=== PATIENT | female | born 1990 | race Caucasian/White ===

== ENCOUNTER 2025-02-05 16:45 | Emergency (ER) | payer OTHER, SELFPAY ==
[2025-02-05 17:21] VITALS: BP 111/80; PULSE 110; RESP 16; TEMP 36.8; O2SAT 97
--- NOTE | 2025-02-05 17:41 | PC.NURSE ---
ERP at bedside with US machine.
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
--- OUTSIDE RECORDS SUMMARY | 2025-02-05 18:20 | XMS_ITS | Clinical Summary ---
Author Organization [facility] Padmini Amezcua Address [address] [place] [address] Care Team Providers Care Operating Room Orderly Name Role Phone Taylor Domínguez DO Primary Care Provider [phone] Allergies No known active allergies Medications Zinc Gluconate 30 mg Tablet Take by mouth. Active MAGNESIUM CITRATE ORAL Take by mouth. Active folic acid-vit B6-vit B12 (Folbee) 2.5-25-1 mg TabletIndication s:MTHFR deficiency Take 1 Tablet by mouth daily. 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, antepartum 10/18/2022 is hemochromatosis carrier 10/18/2022 Overview (10/26/2022): has hemochromatosis, patient is also a carrier Anxiety during in second trimester, an tepartum 10/18/2022 Vitamin D deficiency 09/17/2018 Seasonal allergic rhinitis due to pollen 017 Osteopenia of both thighs 10/26/2014 Pap smear of cervix with ASCUS, cannot exclude H GSIL 05/25/2012 Cervical high risk human pap illomavirus (HPV) DNA test positive 05/25/2012 HANY (generalized anxiety disorder) 09/11/2011 Acne, mild 09/11/2011 Estimated Date of Delivery Comme nts Yes 07/07/2025 Date entered serina or to episode creation Resolved Problems Problem Noted Date Diagnosed Date Resolved Date Chlamydia 12/09/2012 04/24/2013 Encounters Date Type Department Care Team Description 01/26/2025 9:20 AM CDT visit [facility] ASSESSMENT RN [address] [facility] [address] [place] [address] Faith Lau NP Supervision of normal first in second trimester (Primary Dx); Need for influenza vaccination 01/26/2025 External Device Data STL ABSTRACTION Provider, Abstract 01/05/2025 External Device Data STL ABSTRACTION Provider, Abstract 01/04/2025 Refill [facility] ASSESSMENT RN [place] [address] [address] [place] [address] Kimberly Cunningham MD 12/22/2024 9:40 AM CDT visit [facility] ASSESSMENT RN [address] [facility] [address] [place] [address] Faith Lau NP Normal , antepartum (Primary Dx); Encounter for supervision of normal first in first trimester; Obesity in , antepartum 12/22/2024 External Device Data STL ABSTRACTION Provider, Abstract 12/09/2024 External Device Data STL ABSTRACTION Provider, Abstract 12/01/2024 2:40 PM CDT Office Visit [facility] ASSESSMENT RN [address] [place] [address] Kimberly Cunningham MD Positive test (Primary Dx) 12/01/2024 1:30 PM CDT Ancillary Procedure [facility] ASSESSMENT RN [address] [facility] [address] [place] [address] Kimberly Cunningham MD Encounter for confirmation of test result with physical examination; Maternal obesity syndrome in first trimester 11/25/2024 External Device Data STL ABSTRACTION Provider, Abstract 11/05/2024 Telephone [facility] Clinical Support [address] [address] [place] [phone] Kimberly Cunningham MD RN Call from Last 3 Months Immunizations Immunization Administration Dates Next Due (ABRYSVO)(60 YR UP/GA 32-36 WKS) RSV, BIVALENT, PROTEIN SUBUNIT RSVPREF, DILUENT RECONSTITUTED, 0.5 ML, PF 01/20/2024 (ADACEL/BOOSTRIX)(10 YR UP) TDAP VACCINE, 0.5ML, IM 12/17/2023,11/09/2022 (HAVRIX/VAQTA)(19 YRS UP) HE PATITIS A VACCINE ADULT DOSAGE 1 ML IMM 01/28/2012,08/31/2011 (M-M-R II/PRIORIX)(12 MO UP) MEASLES, MUMPS AND RUBELLA VIRUS VACCINE, 0.5 ML IM/SUBCUT 01/28/2023 (SPIKEVAX) (12 YRS UP PRIMAR Y SERIES) COVID-19 VACCINE - MRNA-1273(PF) 100 MCG/0.5 ML IM SUSP 02/24/2021,08/04/2020,07/07/2020 INFLUENZA VACCINE QUADRIVALE NT 6 MOS UP PF IM 01/04/2023 INFLUENZA VACCINE TRIVALENT SPLIT VIRUS, (6 MOS UP), 0.5ML (PF), IM 01/26/2025,01/20/2024 Influenza Seasonal Unspecifi ed Formulation IM 03/06/2021,02/19/2020,01/20/2017 Skin Test TB 12/15/2014, 5,10/12/2013,2013,08/28/2011 Family History Medical History Relation Name Comments No Known Problems Daughter Cancer Father Prostate cancer Prostate can cer High Cholesterol Father Prostate cancer Thyroid Disease Maternal Grandmother Thyroid disease Thyroid Disease Mother Hypothyroid disease Cancer Paternal Grandfather Prostate cancer High Cholesterol Paternal Grandfather Prostate cancer Lung Cancer Paternal Grandfather Prostate cancer High Cholesterol Paternal Grandmother Respiratory Disease Paternal Grandmother No Known Problems Son Relation Name Status Comments Brother 1 Alive Brother 2 Alive Daughter Alive Father Prostate cancer Alive Maternal Grandfather Alive Maternal Grandmother Thyroid disease Alive Mother Hypothyroid disease Alive Paternal Grandfather Prostate cancer Paternal Grandmother Alive Sister Alive Son Alive Social History Tobacco Use Types Packs/Day Years Used Date Smoking Tobacco: Never Smokeless Tobacco: Never Tobacco Cessation:Counseling Given: Not Answered Alcohol Use Standard Drinks/Week Comments Not Currently 0 (1 standard drink = 0.6 oz pure alcohol) Casual drinker on the weekends Feeling Safe Answer Date Recorded Within the last year, have y ou been afraid of your partner or ex-partner? No 09/17/2018 Within the last year, have y ou been humiliated or emotionally abused in other ways by your partner or ex-partner? No Within the last year, have y ou been kicked, hit, slapped, or otherwise physically hurt by your partner or ex-partner? No 09/17/2018 Within the last year, have y ou been raped or forced to have any kind of sexual activity by your partner or ex-partner? No 09/17/2018 Social Connections Answer Date Recorded In a typical week, how many times do you talk on the phone with family, friends, or neighbors? More than three times a week 09/17/2018 How often do you get togethe r with friends or relatives? More than three times a week 09/17/2018 How often do you attend chur ch or amish services? 1 to 4 times per year 09/17/2018 Do you belong to any clubs o r organizations such as moravian groups, unions, fraternal or athletic groups, or school groups? No 09/17/2018 How often do you attend meet ings of the clubs or organizations you belong to? Never 09/17/2018 Are you , , di vorced, , never , or living with a partner? Never 09/17/2018 Financial Resource Strain Answer Date R ecorded How hard is it for you to pa y for the very basics like food, housing, medical care, and heating? Not hard at all 09/17/2018 Food Insecurity Answer Date Recorded Within the past 12 months, y ou worried that your food would run out before you got the money to buy more. Never true 09/18/19 19 Within the past 12 months, t he food you bought just didn't last and you didn't have money to get more. Never true 09/17/2018 Transportation Needs Answer Date Record ed In the past 12 months, has l ack of transportation kept you from medical appointments or from getting medications? No 08/21 In the past 12 months, has l ack of transportation kept you from meetings, work, or from getting things needed for daily living? No 09/17/2018 Feeling Safe Answer Date Recorded Are you in a relationship wi th someone who hurts you emotionally and/or physically? Patient unable to answer 02/25/2024 Estimated Date of Delivery Comme nts Yes 07/07/2025 Date entered serina or to episode creation Sex and Gender Information Value Date Recorded Sex Assigned at Female 12/31/2023 3:05 PM CDT Legal Sex Female 3:06 AM CLAIM INVESTIGATOR Gender Identity Female 12/31/2023 3:05 PM CDT Sexual Orientation Not on file Occupation Industry Job Start Date Job End Date Not on file Not on file Not on file Not on file Last Filed Vital Signs Vital Sign Reading Time Taken Comments Blood Pressure 122/80 01/26/2025 9:04 AM CDT Pulse 75 04/13/2024 9:34 AM CLAIM INVESTIGATOR Temperature 36.3 C (97.3 F) 04/13/2024 9:34 AM CLAIM INVESTIGATOR Respiratory Rate 16 02/27/2024 7:02 AM CLAIM INVESTIGATOR Oxygen Saturation 97% 04/13/2024 9:34 AM CLAIM INVESTIGATOR Inhaled Oxygen Concentration - - Weight 87.1 kg (192 lb) 01/26/2025 9:04 AM CDT Height 162.6 cm (5' 4) 01/26/2025 9:04 AM CDT Body Mass Index 32.96 01/26/2025 9:04 AM CDT Plan of Treatment Upcoming Encounters Date Type Department Care Team (Late st Contact Info) Description 02/16/2025 1:00 PM CDT Ancillary Procedure [facility] ASSESSMENT RN [address] [address] [address] [place] [address] 02/16/2025 2:00 PM CDT visit [facility] ASSESSMENT RN [place] [address] [address] [place] [address] Kimberly Cunningham MD [facility] [address] [place] [address] 03/31/2025 1:30 PM CLAIM INVESTIGATOR visit [facility] ASSESSMENT RN [place] [address] [place] [address] En Rapp MD [facility] [address] [place] [address] 04/13/2025 1:10 PM CLAIM INVESTIGATOR visit [facility] ASSESSMENT RN [place] [address] [place] [address] Kimberly Cunningham MD [facility] [address] [place] [address] 04/19/2025 9:40 AM CLAIM INVESTIGATOR Office Visit [facility] [address] [place] [address] Taylor Domí[place] [address] [place] [address] 05/11/2025 1:40 PM CLAIM INVESTIGATOR visit [facility] ASSESSMENT RN [place] [address] [place] [address] Kimberly Cunningham MD [facility] [address] [place] [address] 05/25/2025 1:30 PM CLAIM INVESTIGATOR visit [facility] ASSESSMENT RN [address] [place] [address] [place] [address] Kimberly Cunningham MD [facility] [address] [place] [address] 06/08/2025 1:10 PM CLAIM INVESTIGATOR visit [facility] ASSESSMENT RN [place] [address] [place] [address] Kimberly Cunningham MD [facility] [address] [place] [address] 06/15/2025 1:10 PM CLAIM INVESTIGATOR visit [facility] ASSESSMENT RN [address] [place] [address] Kimberly Cunningham MD [facility] [address] [place] [address] 06/22/2025 1:10 PM CLAIM INVESTIGATOR visit [facility] ASSESSMENT RN [address] [place] [address] Kimberly Cunningham MD [facility] [address] [place] [address] 06/29/2025 1:20 PM CDT visit [facility] ASSESSMENT RN [address] [place] [address] Kimberly Cunningham MD [facility] [address] [place] [address] 07/06/2025 1:20 PM CDT visit [facility] ASSESSMENT RN [address] [place] [address] Kimberly Cunningham MD [facility] [address] [place] [address] Health Maintenance Due Date Last Done Comments HEPATITIS B VACCINES (1 of 3 - 19+ 3-dose series) 2010 HPV VACCINES (1 - 3-dose SCD M series) 2018 COVID-19 Vaccine (4 - 2024-2 6 season) 2024 02/24/2021, 08/04/2020, 07/07/2020 PAP SMEAR 05/05/2027 05/05/2024, 12/2023, 02/28/2021, Additional history exists CERVICAL CANCER SCREENING 05/05/2029 HPV/Cotest (21-29) 05/05/2029 05/05/2024, 0 04/30/2023, 11/26/2019, Additional history exists HPV/Cotest (30-65) 05/05/2029 05/05/2024, 0 04/30/2023, 11/26/2019, Additional history exists DTAP/TDAP/TD VACCINES (3 - T d or Tdap) 12/16/2033 12/17/2023, 11/09/2022 RSV VACCINE (60+ or ) Completed 01/20/2024 Preventative Visit- Commercial Completed 0 05/04/2024, 04/13/2024, 04/30/2023, Additional history exists INFLUENZA VACCINE Completed 01/26/2025, , 01/04/2023, Additional history exists Medical Devices Explanted Type Area Hvac Controls Technician Device Identifier Shelf Expiration Date Model / Serial / Lot Stent Polaris Ultra [id number] - [id number] Implanted:Qty: 1 on 04/27/2015 by Jl Koehler MD at [facility] Explanted:Qty: 1 on 05/16/2015 by Mel Eubanks MD at [facility] Stent Right: Ureter [employer] UROLOGY/VIDEOGAME TESTER 02/06/2018 [id number] / / [id number] Procedures Procedure Name Priority Date/Time Associated Diagnosis Comments NON-INVASIVE TESTING PANEL (NIPT) Routine 12/28/2024 Encounter for supervision of normal first in first trimester MEDICATION COMPLIANCE DRUG SCREEN Routine 12/22/2024 12:00 AM CDT Normal , antepartum URINE CULTURE, W/GBS SUSCEPTIBILITIES Routine 12/22/2024 12:00 AM CDT Normal , antepartum GC/CHLAMYDIA, UROGENITAL Routine 12/01/2024 3:06 PM CDT Positive test OBSTETRIC PANEL Routine 12/01/2024 2:51 PM CDT Positive test US OB LESS THAN 14 WKS SINGLE GEST Routine 12/01/2024 1:43 PM CDT Encounter for confirmation of test result with physical examination Maternal obesity syndrome in first trimester PROGESTERONE Routine 11/09/2024 2:08 PM CDT Positive urine test HCG QUANTITATIVE, BLOOD Routine 11/10/19 2:08 PM CDT Positive urine test CERV/VAG CYTO SCREEN PAP W/HPV Routine 05/05/2024 10:32 AM CLAIM INVESTIGATOR Well woman exam with routine gynecological exam Screen for STD (sexually transmitted disease) from Last 3 Months or Most Recently Relevant to Health Maintenance Results * NON-INVASIVE TESTING PANEL (NIPT) (12/28/2024) REPORT SUMMARY LOW RISK [facility] Comment:LOW RISK REPORT NOTE See Notes [facility] TRISOMY 13 AGE-BASED RISK TEXT (0.04%) [facility]E TRISOMY 13 RISK SCORE TEXT <1/10,000 (<0.01%) [facility]E TRISOMY 13 RESULT TEXT Low Risk [facility] TRISOMY 18 AGE-BASED RISK TEXT 725 (0.14%) [facility]E TRISOMY 18 RISK SCORE TEXT <1/10,000 (<0.01%) [facility] TRISOMY 18 RESULT TEXT Low Risk [facility] TRISOMY 21 AGE-BASED RISK TEXT 312 (0.32%) [facility]E TRISOMY 21 RISK SCORE TEXT <1/10,000 (<0.01%) [facility] TRISOMY 21 RESULT TEXT Low Risk [facility] MONOSOMY X AGE-BASED RISK TEXT 255 (0.39%) [facility]E MONOSOMY X RISK SCORE TEXT <1/10,000 (<0.01%) [facility] MONOSOMY X RESULT TEXT Low Risk [facility] 22Q11.2 DELETION SYNDROME POPULATION-BASED RISK TEXT [facility]E 22Q11.2 DELETION SYNDROME RISK SCORE TEXT DARCIE 22Q11.2 DELETION SYNDROME RESULT TEXT Low Risk D[facility] TRIPLOIDY RESULT TEXT Low Risk [facility] GENDER OF FETUS Female D[facility]E FRACTION 5.9% [facility] RH (D) SUMMARY status not assessed [facility] Comment: The patient is RHD positive by genotype and therefore, the status is not assessed. Reasons for this result type include Rh positive blood type or Rh negative blood type with Weak D, Partial D (e.g. DVI), or other rare RHD genotype. *Clinical management should be based upon the patient's Rh blood type result by routine serology. *A repeat specimen is not indicated. FOOTNOTES See Notes [facility] Comment: Testing Methodology DNA isolated from maternal blood, which contains placental DNA, is amplified at specific loci using a targeted PCR assay and is sequenced using a high- throughput sequencer. fraction is determined using a proprietary algorithm incorporating data from single nucleotide polymorphism-based (SNP-based) next-generation sequencing [Alondra Lyons et al. Obstet Gynecol. 2014 Nov;124(2 Pt 1):210-8]. If there is sufficient fraction, sequencing data is analyzed using a proprietary SNP- based algorithm to determine the copy number for chromosomes 13, 18, 21, X and Y. If ordered, specific microdeletions will be evaluated using similar methodology [Manuel HALL et al. Am J Obstet Gynecol. 2015 Jun;212(3):332.e1-9]. If the fraction is insufficient, an additional algorithm to determine whether there is an increased risk for triploidy, trisomy 18, and trisomy 13 may be utilized, known as fraction based risk assessment (FFBR) [Caridad et al. Ultrasound Obstet Gynecol 2019; 53:73-79]. If ordered on a vanishing twin , a proprietary analysis will be performed to differentiate between the viable/living fetus and the vanished fetus to allow for risk assessment of copy number of chromosomes 13,18, 21, X, Y, and specific microdeletions in the viable/living twin using the above described SNP- based algorithm. If ordered, and patient is RHD negative by genotype, RHD status will be evaluated using a proprietary algorithm if fraction is sufficient [Madonna Eric et al. Obstet Gynecol 202;145:1?7]. However, some samples will not produce a result due to failure to meet the necessary quality thresholds. This test has been validated on women with a manzano, twin, vanishing twin, or egg donor of at least nine weeks gestation. A result will not be available for higher order multiples and multiple gestation pregnancies with an egg donor or surrogate, or bone marrow transplant recipients. Complete test panel is not available for twin gestations and pregnancies achieved with an egg donor or surrogate. For twin pregnancies with a fraction value below the threshold for analysis, a sum of the fractions for both twins will be reported. As this assay is a screening test and not diagnostic, false positives and false negatives can occur. High risk test results need diagnostic confirmation by alternative testing methods. Low risk results do not fully exclude the diagnosis of any of the syndromes nor do they exclude the possibility of other chromosomal abnormalities or defects, which are not a part of this test. Potential sources of inaccurate results include, but are not limited to, mosaicism, low fraction, limitations of current diagnostic techniques, or misidentification of samples. This test will not identify all deletions associated with each microdeletion syndrome. This test has been validated for deletions ?0.5 Mb within the 22q11.2 A-D region. This test has been validated on full region deletions only for 1p36 deletion syndrome, Cri-du-chat syndrome, Prader Willi syndrome and Angelman syndrome and may be unable to detect smaller deletions. Microdeletion risk score may be dependent upon fraction, as deletions on the maternally inherited copy are difficult to identify at lower fractions. Test results should always be interpreted by a clinician in the context of clinical and familial data with the availability of genetic counseling when appropriate. Disclaimers The extraction, library preparation, and sequencing of this test were performed by [facility] [address] [place] [address] [address], [place] [address] (CLIA ID [id number]). The data analysis and reporting of this test were performed by [facility] [address], [place] [address] (CLIA ID [id number]). The performance characteristics of this test were developed by [facility].(CLIA ID [id number]). This test has not been cleared or approved by the U.S. Food and Drug Administration (FDA). These laboratories are regulated under CLIA as qualified to perform high-complexity testing. 2024 [facility]. All Rights Reserved. Please refer to the attached PDF report Reviewed By: Erica Coreas M.D., Ph.D., [facility], Senior Senior Functional Analyst [facility] Bathing Suit Maker: Esthela Palacio, Ph.D., [facility] IF THE ORDERING PROVIDER HAS QUESTIONS OR WISHES TO DISCUSS THE RESULTS, PLEASE CONTACT US AT [phone], option 2. Ask for the NIPT genetic counselor process control tech. Blood Faith Lau NP CHEMISTRY ORDERABLES Final Re sult [facility] [address] [place] [address] * URINE CULTURE, W/GBS SUSCEPTIBILITIES (12/22/2024 12:00 AM CDT) CULTURE, URINE, , W/GBS SUSCEPTIBILITIES SEE NOTE [facility] Comment: CULTURE, URINE, , W/GBS SUSCEPTIBILITIES Micro Number: [id number] Test Status: Final Specimen Source: Urine, clean catch Specimen Quality: Adequate Result: No Growth Test Performed at: [place] [address] [place] [address] Shashi Amin Urine URINE SPECIMEN OBTAINED BY CLEAN CATCH PROCEDURE / Unknown 12/22/2024 12/23/2024 12:33 AM CDT Faith Lau NP MICROBIOLOGY - GENERAL ORDERA BLES Final Result [facility] [phone] [place] [address] [place] [address] * MEDICATION COMPLIANCE DRUG SCREEN (12/22/2024 12:00 AM CDT) Summary [facility] Comment:Summary not applicab le BUPRENORPHINE (URINE) NEGATIVE <5 ng/mL [facility] Fentanyl NEGATIVE <0.5 ng/mL [facility] Propoxyphene, Urine NEGATIVE <300 ng/mL [facility] MDA (Ecstasy Mtb), Urine NEGATIVE <200 ng/mL [facility] MDMA (Ecstasy), Urine NEGATIVE <200 ng/mL [facility] MDMA Comments [facility] Comment:See LDT Notes Meprobamate, Urine NEGATIVE <1000 ng/mL [facility] Carisoprodol Comments [facility] Comment:See LDT Notes Tapentadol, Urine NEGATIVE <50 ng/mL [facility] Nortapentadol, Urine NEGATIVE <50 ng/mL [facility] Tapentadol Comments [facility] Comment:See LDT Notes O-Desmethyltramadol , Urine NEGATIVE <100 ng/mL [facility] Tramadol, Urine NEGATIVE <100 ng/mL [facility] Tramadol Comments [facility] Comment:See LDT Notes Gabapentin, Urine NEGATIVE <1000 ng/mL [facility] Gabapentin Comments [facility] Comment:See LDT Notes Meperidine, Urine NEGATIVE <100 ng/mL [facility] Normeperidine, Urine NEGATIVE <100 ng/mL [facility] Meperidine Comments [facility] Comment:See LDT Notes PREGABALIN, QUANT URINE NEGATIVE <1000 ng/mL [facility] Pregabalin Comments [facility] Comment:See LDT Notes Alcohol Metabolites, Urine NEGATIVE <500 ng/mL [facility] AMPHETAMINES (URINE) NEGATIVE <500 ng/mL [facility] BARBITURATES (URINE) NEGATIVE <300 ng/mL [facility] BENZODIAZEPINES (URINE) NEGATIVE <100 ng/mL [facility] COCAINE & METABOLITE (URINE) NEGATIVE <150 ng/mL [facility] 6 ACETYLMORPHINE, URINE NEGATIVE <10 ng/mL [facility] CANNABINOIDS QUAL, URINE NEGATIVE <20 ng/mL [facility] Methadone Metabolite, Urine NEGATIVE <100 ng/mL [facility] OPIATE CLASS (URINE) NEGATIVE <100 ng/mL [facility] OXYCODONE CLASS (URINE) NEGATIVE <100 ng/mL [facility] PHENCYCLIDINE, URINE NEGATIVE <25 ng/mL [facility] Creatinine, Urine 55.6 > or = 20.0 mg/dL [facility] PH 7.5 4.5 - 9.0 [facility] OXIDANT, URINE NEGATIVE <200 mcg/mL [facility] ZOLPIDEM, URINE NEGATIVE <5 ng/mL [facility] Zolipidem Metabolite, Urine NEGATIVE <5 ng/mL [facility] Zolpidem Comments [facility] Comment:See LDT Notes COMMENT TOXICOLOGY [facility] Comment: This drug testing is for medical treatment only. Analysis was performed as non-forensic testing and these results should be used only by healthcare providers to render diagnosis or treatment, or to monitor progress of medical conditions. LDT Notes: Confirmation tests were developed and their analytical performance characteristics have been determined by [facility]. It has not been cleared or approved by the FDA. This assay has been validated pursuant to the CLIA regulations and is used for clinical purposes. medMATCH(R) enables providers to identify if drug use is consistent or inconsistent with a corresponding prescribed medication(s) list. Healthcare Providers needing Interpretation assistance, please contact us at [phone] ( ) M-F, 8am to 10pm EST Test Performed at: [facility] [address] [place] [address] Faustino HINOJOSA Urine URINE SPECIMEN OBTAINED BY CLEAN CATCH PROCEDURE / Unknown 12/22/2024 12/23/2024 12:33 AM CDT us Faith Lau NP URINE ORDERABLES Final Result [facility] [phone] [facility] [address] [place] [address] * GC/CHLAMYDIA, UROGENITAL (12/01/2024 3:06 PM CDT) CHLAMYDIA TRACHOMATIS RNA, TMA, UROGENITAL NOT DETECTED NOT DETECTED [facility] [place] NEISSERIA GONORRHOEAE RNA, TMA, UROGENITAL NOT DETECTED NOT DETECTED [facility] [place] COMMENT INFECTIOUS DISEASE [facility] [place] [facility] Comment: The analytical performance characteristics of this assay, when used to test SurePath(TM) specimens have been determined by [facility]. The modifications have not been cleared or approved by the FDA. This assay has been validated pursuant to the CLIA regulations and is used for clinical purposes. For additional information, please refer to https://education.Qteros/faq/RFD873 (This link is being provided for information/ educational purposes only.) Test Performed at: [id number] [address] [place] [address] Shashi Amin MD Urine (Urine, 1st catch) 12/01/2024 3:06 PM CDT 12/02/2024 5:52 AM CDT Kimberly Cunningham MD [facility] Final Result [facility] [phone] [place] [place] [address] [place] [address] * (ABNORMAL) OBSTETRIC PANEL WITH HIV (12/01/2024 2:51 PM CDT) Pathologist [facility] WBC 11.2(H) 3.8 - 10.8 Thousand /uL [facility] RBC 4.69 3.80 - 5.10 Million/ uL [facility] HEMOGLOBIN 14.3 11.7 - 15.5 g/dL [facility] HEMATOCRIT 44.0 35.0 - 45.0 % [facility] MCV 93.8 80.0 - 100.0 fL [facility] MCH 30.5 27.0 - 33.0 pg [facility] [place] MCHC 32.5 32.0 - 36.0 g/dL [facility] [place] [facility] Comment: For adults, a slight decrease in the calculated MCHC value (in the range of 30 to 32 g/dL) is most likely not clinically significant; however, it should be interpreted with caution in correlation with other red cell parameters and the patient's clinical condition. RDW 12.2 11.0 - 15.0 % [facility] [place] PLATELETS 362 140 - 400 Thousand /uL [facility] [place] MPV 11.3 7.5 - 12.5 fL [facility] NEUTROPHIL ABSOLUTE 8,187(H) 1,500 - 7,800 cells/uL [facility] LYMPHOCYTE ABSOLUTE 2,430 850 - 3,900 cells/uL [facility] MONOCYTE ABSOLUTE 470 200 - 950 cells/uL [facility] EOSINOPHIL ABSOLUTE 67 15 - 500 cells/uL [facility] BASOPHILS ABSOLUTE 45 0 - 200 cells/uL [facility] NEUTROPHIL 73.1 % [facility] LYMPHOCYTES 21.7 % [facility] MONOCYTE 4.2 % [facility] EOSINOPHILS 0.6 % [facility] BASOPHILS 0.4 % [facility] ANTIBODY SCREEN NO ANTIBODIES DETECTED [facility] [place] Comment: Reference range No antibodies detected This assay is a screening test for the detection of red blood cell antibodies. The test is not to be used for pretransfusion screening or for the medical management of an alloimmunized . ABO GROUP O [facility] [place] RH (D) TYPE RH(D) NEGATIVE [facility] Comment: For additional information, please refer to http://Aget[employer]/faq/YOZ081 (This link is being provided for informational/ educational purposes only.) RPR NON-REACTIVE NON-REAC TIVE [facility] [place] Comment: No laboratory evidence of syphilis. If recent exposure is suspected, submit a new sample in 2-4 weeks. HEPATITIS B SURFACE AG NON-REACTIVE NON-REAC TIVE [facility] [place] Comment: For additional information, please refer to http://Aget[employer] Service.Qteros/faq/HLO041 (This link is being provided for informational/ educational purposes only.) RUBELLA IMMUNE STATUS 1.41 Index [facility] [place] Comment: Index Interpretation ----- <0.90 Not consistent with immunity 0.90-0.99 Equivocal > or = 1.00 Consistent with immunity The presence of rubella IgG antibody suggests immunization or past or current infection with rubella virus. [facility] RESULT [facility] [place] Comment: [facility] component Name and Code: HIV FINAL INTERPRETATION [[id number]] HIV Negative HIV-1 antigen and HIV-1/HIV-2 antibodies were not detected. There is no laboratory evidence of HIV infection. HIV-1/2 AG AND AB SCREEN NON-REACTIVE NON-REAC TIVE [facility] HEPATITIS C AB NON-REACTIVE NON-REAC TIVE [facility] Comment: HCV antibody was non-reactive. There is no laboratory evidence of HCV infection. In most cases, no further action is required. However, if recent HCV exposure is suspected, a test for HCV RNA (test code 96750) is suggested. For additional information please refer to http://education.Qteros/faq/URK52l5 (This link is being provided for informational/ educational purposes only.) Test Performed at: [facility] [address] [place] [address] Shashi Amin MD Blood 12/01/2024 2:51 PM CDT 12/01/2024 2:51 PM CDT us Kimberly Cunningham MD CHEMISTRY ORDERABLES Final Result [facility] [phone] [employer] [address] * US OB LESS THAN 14 WKS SINGLE GEST (12/01/2024 1:43 PM CDT) Anatomical Region Laterality Modality Pelvis Ultrasound 12/01/2024 1:30 PM CDT Narrative 12/01/2024 2:39 PM CDT CLINIC 1ST TRIMESTER TV/TA ----- Pat. Name: LAWRENCE GUTIERREZ Study Date: 12/01/2024 1:30pm Pat. NO: [id number] Referring MD: KIMBERLY CUNNINGHAM Site: [facility] Health Consultant: Tiffanie Navarrete RDMS : 1990 Age: 34 ----- INDICATION ----- Confirm Viability CODING ----- Diagnoses O36.80X0: with inconclusive viability Procedures [id number]: Ultrasound, uterus, real time with image documentation, and maternal evaluation, first trimester (< 14 weeks 0 days), transabdominal approach; single or first gestation HISTORY ----- OB History 6. Para 2 Manzano children born living (T) 2. Miscarriages 3 T2L2 MATERNAL ASSESSMENT ----- Physical Exam Weight 82 kg. Initial weight 82 kg, 180 lb. BMI 30.90 kg/m . Initial BMI 30.90 kg/m . Weight gain 0 kg, 0 lb METHOD ----- Transabdominal ultrasound examination ----- Manzano . Number of fetuses: 1 DATING ----- Method of dating: based on the LMP LMP on: 09/30/2024 GA by LMP 8 w + 6 d CLARISSA by LMP: 07/07/2025 Ultrasound examination on: 12/01/2024 GA by U/S based upon: CRL GA by U/S 9 w + 1 d CLARISSA by U/S: 07/05/2025 Assigned: based on the LMP, selected on 12/01/2024 Assigned GA 8 w + 6 d Assigned CLARISSA: 07/07/2025 ASSESSMENT ----- Gestational sac: visualized. Location: intrauterine Yolk sac: visualized Embryo: visualized Cardiac activity: present YS 3.6 mm 2% Grisolia CRL 24.9 mm 9w 1d Hadlock FHR 171 bpm MATERNAL STRUCTURES ----- Uterus Position: anteverted Right Ovary Size 28 mm x 28 mm x 18 mm. Vol 7.4 cm Appearance: appears normal in size, shape, structure and morphology. Left Ovary Size 30 mm x 34 mm x 12 mm. Vol 6.2 cm Appearance: appears normal in size, shape, structure and morphology Uterus and adnexa normal IMPRESSION ----- Single living fetus with a gestational age of 8w 6d based on sonographic measurement (Consistent/Not Consistent) with menstrual dating. No gross and overt abnormalities noted The Uterus appears anteverted The right and left ovary appear unremarkable Final EDC: 07/07/2025 Recommendation: anatomic survey at 20 weeks Procedure Note Kimberly Cunningham MD - 12/01/2024 [facility] 1ST TRIMESTER TV/TA ----- Pat. Name:David GUTIERREZ Date:12/01/2024 1:30pm Pat. NO: [id number] MD:KIMBERLY CUNNINGHAM [facility]anie Navarrete RDMS :1990Age:34 ----- INDICATION ----- Confirm Viability CODING ----- Diagnoses O36.80X0: with inconclusive fetalviability Procedures [id number]: Ultrasound, uterus, real time withimage documentation, and maternal evaluation, first trimester (< 14 weeks 0 days),transabdominal approach; single or first gestation HISTORY ----- OB History 6. Para 2 Manzano children born living (T) 2. Miscarriages3 T2L2 MATERNAL ASSESSMENT ----- Physical Exam Weight 82 kg. Initial weight 82 kg, 180 lb. BMI30.90 kg/m . Initial BMI 30.90 kg/m . Weight gain 0 kg, 0 lb METHOD ----- Transabdominal ultrasound examination ----- Manzano . Number of fetuses: 1 DATING ----- Method of dating:based on the LMP LMP on:09/30/2024 GA by LMP8 w + 6 d CLARISSA by LMP:07/07/2025 Ultrasound examination on:12/01/2024 GA by U/S based upon:CRL GA by U/S9 w + 1 d CLARISSA by U/S:07/05/2025 Assigned:based on the LMP, selected on 12/01/2024 Assigned GA8 w + 6 d Assigned CLARISSA:07/07/2025 ASSESSMENT ----- Gestational sac: visualized. Location: intrauterine Yolk sac: visualized Embryo: visualized Cardiac activity: present YS 3.6 mm 2%Grisolia CRL 24.9 mm 9w 1dHadlock FHR 171 bpm MATERNAL STRUCTURES ----- Uterus Position: anteverted Right Ovary Size 28 mm x 28 mm x 18 mm. Vol 7.4 cm Appearance: appears normal in size, shape,structure and morphology. Left Ovary Size 30 mm x 34 mm x 12 mm. Vol 6.2 cm Appearance: appears normal in size, shape,structure and morphology Uterus and adnexa normal IMPRESSION ----- Single living fetus with a gestational age of 8w 6d based on sonographicmeasurement (Consistent/Not Consistent) with menstrual dating. No gross and overt abnormalities noted The Uterus appears anteverted The right and left ovary appear unremarkable Final EDC: 07/07/2025 Recommendation: anatomic survey at 20 weeks us Kimberly Cunningham MD US ORDERABLES Final Resul t * PROGESTERONE (11/09/2024 2:08 PM CDT) PROGESTERONE 18.0 ng/mL [facility] Comment: Reference Ranges Female Follicular Phase < 1.0 Luteal Phase 2.6-21.5 Post menopausal < 0.5 1st Trimester 4.1-34.0 2nd Trimester 24.0-76.0 3rd Trimester 52.0-302.0 Test Performed at: [facility] [place] [address] [place] [address] [facility] Vo Blood 11/09/2024 2:08 PM CDT 11/09/2024 2:09 PM CDT Kimberly Cunningham MD CHEMISTRY ORDERABLES Final Result [facility] [phone] [place] [address] [address] [place] [address] * HCG QUANTITATIVE, BLOOD (11/09/2024 2:08 PM CDT) HCG QUANT, BLOOD 23225 mIU/mL [facility] Comment: Gestational Age Expected hCG values (mIU/mL) <1 Week: 5-50 1-2 Weeks: 50-500 2-3 Weeks: 100-5000 3-4 Weeks: 500-70110 4-5 Weeks: 1000-54782 5-6 Weeks: 469[address] 6-8 Weeks: [address] 2-3 Months: [address] The table above provides only a very rough estimate of gestational age and should be used only in conjunction with other methods for establishing gestational age. Much more reliable and accurate estimations of gestational age may be obtained by using LMP or ultrasound. Values from different assay methods may vary. The use of this assay to monitor or to diagnose patients with cancer or any condition unrelated to has not been cleared or approved by the FDA or the manufacturing engineering manager of the assay. Test Performed at: [facility] [place] [address] [address] [place] [address] [facility] Blood 11/09/2024 2:08 PM CDT 11/09/2024 2:09 PM CDT us Kimberly Cunningham MD CHEMISTRY ORDERABLES Final Result [facility] [phone] [facility] [place] [address] [place] [address] * CERV/VAG CYTO SCREEN PAP W/HPV (05/05/2024 10:32 AM CLAIM INVESTIGATOR) CLINICAL INFORMATION [facility] [place] Comment:None given LAST MENSTRUAL PERIOD [facility] [place] Comment:NONE GIVEN PREV PAP: [facility] [place] Comment:NONE GIVEN PREV BX: [facility] [place] Comment:NONE GIVEN SOURCE [facility] [place] Comment:Endocervix ADEQUACY: [facility] [place] [facility] Comment: Satisfactory for evaluation. Endocervical/transformation zone component present. Age and/or menstrual status not provided PAP INTERP [facility] [place] Comment: Cytology Results: Negative for intraepithelial lesion or malignancy. COMMENT (PAP TEST) [facility] [place] Comment: This Pap test has been evaluated with computer assisted technology. ORDNANCE HANDLER: [facility] [place] Comment: LMT, CT(ASCP) CT screening location: [place] [address] [place] [address] EXPLANATORY NOTE [facility] [place] Comment: EXPLANATORY NOTE: The Pap is a screening test for cervical cancer. It is not a diagnostic test and is subject to false negative and false positive results. It is most reliable when a satisfactory sample, regularly obtained, is submitted with relevant clinical findings and history, and when the Pap result is evaluated along with historic and current clinical information. HPV E6/E7 Not Detected Not Detected [facility] [place] Comment: Methodology: Field Investigator-Mediated Amplification This assay detects E6/E7 viral messenger RNA (mRNA) from 14 high-risk HPV types (16,18,31,33,35,39,45,51,52,56,58,59,66,68). Cervical sources are required for HPV testing. If a vaginal source from a patient who has had a total hysterectomy with removal of cervix was submitted, please contact the testing laboratory for alternative testing options. For additional information, please refer to http://education.Qteros/faq/LNA904h3 (This link if provided for information/ educational purposes only.) Test Performed at: [facility] [address] [address] Shashi SKINNER Genital SWAB OF ENDOCERVIX / Unknown 05/05/2024 10:32 AM CLAIM INVESTIGATOR 05/06/2024 3:04 AM CLAIM INVESTIGATOR us Kimberly Cunningham MD PATHOLOGY/CYTOLOGY ORDERABL ES Final Result [facility] [phone] [facility] [place] [address] [address] from Last 3 Months or Most Recently Relevant to Health Maintenance Insurance [place] [id number] RX [employer] RX Member Subscriber Plan / Payer (Ef fective 2023-Present) Name:Lawrence Gutierrez Relation to Subscriber:Self Name:Lawrence Gutierrez Subscriber ID:Not on file Payer ID:Not on file Group ID:[id number] Type:RX Commercial Address: [address] Advance Directives For more information, please contact: [phone] * Full Code (Latest Code Status on File) Date Activated Date Inactivated Comments 02/26/2024 3:42 AM 02/27/2024 5:01 PM * Full Code Date Activated Date Inactivated Comments 02/25/2024 1:41 PM 02/26/2024 3:42 AM * Full Code Date Activated Date Inactivated Comments 02/25/2024 10:03 AM 02/25/2024 1:41 PM * Full Code Date Activated Date Inactivated Comments 01/24/2023 6:15 AM 01/25/2023 1:16 PM * Full Code Date Activated Date Inactivated Comments 01/11/2023 8:26 PM 01/12/2023 11:37 AM Care Teams Operating Room Orderly Relationship Specialty Start Date End Date Taylor Domí[place] [address] [address] [place] [address] PCP - General Internal Medicine 06/24/20
--- OUTSIDE RECORDS SUMMARY | 2025-02-05 18:20 | XMS_ITS | Encounter Summary ---
Author Organization [facility] Address [address] [place] [address] Care Team Providers Care Supervisor Sleeping Bag Department Name Role Phone Taylor Domínguez Primary Care Provider [phone] Encounter Details Date Type Department Care Team (Latest Contact Info) Description 11/04/2007 Outpatient Historical [facility] [place] [address] Miriam Canas MD [address] [facility] [address] [place] [address] Central Hearing Loss Social History Tobacco Use Types Packs/Day Years Used Date Smoking Tobacco: Never Assessed Comments Unknown Sex and Gender Information Value Date Recorded Sex Assigned at Female 12/31/2023 3:05 PM CDT Legal Sex Female 3:06 AM GLOBAL POSITION SYSTEM TECHNICIAN Gender Identity Female 12/31/2023 3:05 PM CDT Sexual Orientation Not on file documented as of this encounter Plan of Treatment Upcoming Encounters Date Type Department Care Team (Late st Contact Info) Description 02/16/2025 1:00 PM CDT Ancillary Procedure [facility] SILVER SERVICE WAITER [address] [place] [address] 02/16/2025 2:00 PM CDT visit [facility] SILVER SERVICE WAITER [address] [place] [address] Kimberly Miller MD [facility] [address] [place] [address] 03/31/2025 1:30 PM GLOBAL POSITION SYSTEM TECHNICIAN visit [facility] SILVER SERVICE [place] [address] [place] [address] En Rapp MD [facility] [address] [place] [address] 04/13/2025 1:10 PM GLOBAL POSITION SYSTEM TECHNICIAN visit [facility] SILVER SERVICE [place] [address] [place] [address] Kimberly Miller MD [facility] [address] [place] [address] 04/19/2025 9:40 AM GLOBAL POSITION SYSTEM TECHNICIAN Office Visit [facility] - [facility] [address] [id number] [address] [facility] [address] [place] [address] Taylor Domí[place] [address] [address] [facility] [address] [place] [address] 05/11/2025 1:40 PM GLOBAL POSITION SYSTEM TECHNICIAN visit [facility] SILVER SERVICE [place] [address] [place] [address] Kimberly Miller MD [facility] [address] [place] [address] 05/25/2025 1:30 PM GLOBAL POSITION SYSTEM TECHNICIAN visit [facility] SILVER SERVICE WAITER [place] [address] [place] [address] Kimberly Miller MD [facility] [address] [place] [address] 06/08/2025 1:10 PM GLOBAL POSITION SYSTEM TECHNICIAN visit [facility] SILVER SERVICE [place] [address] [place] [address] Kimberly Miller MD [facility] [address] [place] [address] 06/15/2025 1:10 PM GLOBAL POSITION SYSTEM TECHNICIAN visit [facility] SILVER SERVICE WAITER [address] [place] [address] Kimberly Miller MD [facility] [address] [place] [address] 06/22/2025 1:10 PM GLOBAL POSITION SYSTEM TECHNICIAN visit [facility] SILVER SERVICE WAITER [address] [place] [address] Kimberly Miller MD [facility] [address] [place] [address] 06/29/2025 1:20 PM CDT visit [facility] SILVER SERVICE WAITER [address] [place] [address] Kimberly Miller MD [facility] [address] [place] [address] 07/06/2025 1:20 PM CDT visit [facility] SILVER SERVICE WAITER [address] [place] [address] Kimberly Miller MD [facility] [address] [place] [address] documented as of this encounter Visit Diagnoses Diagnosis Central hearing loss documented in this encounter Care Teams Supervisor Sleeping Bag Department Relationship Specialty Start Date End Date Taylor Domí[place] [address] [place] [address] PCP - General Internal Medicine 06/24/20 documented as of this encounter
--- OUTSIDE RECORDS SUMMARY | 2025-02-05 18:20 | XMS_ITS | Clinical Summary ---
Author Organization [facility] Address [address] [place] [address] Care Team Providers Care Pizza Driver Name Role Phone Trevon Smalls MD Unavailable Taylor Domínguez DO Primary Care Provider [phone] Allergies No known active allergies Medications cetirizine (ZyrTEC) 10 mg tablet Take 10 mg by mouth daily Active famotidine (PEPCID) 10 mg tablet Take 10 mg by mouth daily Active zinc gluconate 30 mg tablet Take by mouth Active folic acid (FOLVITE) 400 mcg tablet Take 400 mcg by mouth daily Active aspirin 81 mg enteric coated tablet Take 81 mg by mouth daily Active folic acid-vit B6-vit B12 2.5-25-1 mg tablet Take 1 tablet by mouth daily 04/09/2022 Active magnesium oxide (MAG-OX) 250 mg (150.8 mg elemental) tablet 250 mg daily Active vit 93-iron fum-folic 9 mg iron- 267 mcg tablet Take by mouth Active Active Problems Problem Noted Date Diagnosed Date Positive DHARA (antinuclear antibody) 04/27/2022 Overview (05/03/2022): AVISE 04/27/22: negative Assessment & Plan (04/27/2022 1:35 PM HEAVY MACHINERY ASSEMBLER): 32-year-old female with PMHx kidney stone and 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 Previous serological work up per FREIGHT LOADER revealed negative LAC. Denies any cardiopulmonary complaints, arthralgias, photosensitive rashes, sicca, oral ulcers, Raynaud's, or pleurisy. There is no obvious synovitis or tenderness noted on peripheral joint exam today. Absence of symptoms, unremarkable exam, and low titer DHARA are not suspicious for a rheumatologic disease. Likely low positive DHARA is a benign variant which can be seen in women of child-bearing age vs a false positive. Will order appropriate serologies to further evaluate and rule out autoimmune involvement. Will call with results and plan to follow up as needed. Seen with Dr. Smalls. Khris finger 10/26/2014 Surgical History Surgery Date Site/Laterality Comments KIDNEY STONE SURGERY 04/22/2014 - 04/21/2015 DILATION AND CURETTAGE OF UTERUS 06/28/2021 DILATION AND CURETTAGE OF UTERUS 12/21/2021 - 01/19/2022 Family History Medical History Relation Name Comments Cancer Father Family history of malignant neoplasm - (Added by TW Conv) Hypertension Father Family history of hypertension - (Added by TW Conv) Osteoporosis Other Relation Name Status Comments Father Other Social History Tobacco Use Types Packs/Day Years Used Date Smoking Tobacco: Never Smokeless Tobacco: Never Personal Safety Answer Date Recorded Getting School Help Needed Not on file 06/16 Comments Unknown Sex and Gender Information Value Date Recorded Sex Assigned at Not on file Legal Sex Female 1:23 AM HEAVY MACHINERY ASSEMBLER Gender Identity Not on file Sexual Orientation Not on file Obstetrics History Last Filed Vital Signs Vital Sign Reading Time Taken Comments Blood Pressure 120/78 04/27/2022 1:00 PM HEAVY MACHINERY ASSEMBLER Pulse 80 04/27/2022 1:00 PM HEAVY MACHINERY ASSEMBLER Temperature - - Respiratory Rate - - Oxygen Saturation 100% 04/27/2022 1:00 PM HEAVY MACHINERY ASSEMBLER Inhaled Oxygen Concentration - - Weight 70.3 kg (155 lb) 04/27/2022 1:00 PM HEAVY MACHINERY ASSEMBLER Height 162.6 cm (5' 4) 04/27/2022 1:00 PM HEAVY MACHINERY ASSEMBLER Body Mass Index 26.61 04/27/2022 1:00 PM HEAVY MACHINERY ASSEMBLER Plan of Treatment Health Maintenance Due Date Last Done Comments Cervical Cancer Screening 1991 Depression Screening 1991 Hepatitis C Screening 1991 DTaP/Tdap/Td Vaccine (1 - Tdap) 2002 Varicella Vaccines (1 of 2 - 13+ 2-dose series) 2004 Hepatitis B Screening 2009 Regular Well Visit/Exam 18-64 2009 HPV Vaccines (1 - 3-dose SCD M series) 2018 Covid-19 Vaccine (4 - 2024-2 6 season) 2024 02/24/2021, 08/04/2020, 07/07/2020 Influenza Vaccine (#1) 2024 , 02/19/2020, 01/20/2017 Pneumococcal vaccine <65 Aged Out No longer eligible based on patient's age to complete this topic Insurance [facility] CHOICE PLUS [facility] CHO[facility] PLUS Care Teams Pizza Driver Relationship Specialty Start Date End Date Taylor Domí[place] [id number] [facility] [address] [place] [id number] PCP - General Internal Medicine 03/23/22 Trevon Smalls MD [address] [place] [address] Consulting Physician Rheumatology 03/23/22
== END 2025-02-05 18:35 | disposition home or self-care (01) ==
LOC: ANHED 18:17
PROVIDERS: Emergency Provider Physician Assistant
DX: O9A.212 Injury, poisoning and certain other consequences of external causes complicating pregnancy, second trimester (principal); S16.1XXA Strain of muscle, fascia and tendon at neck level, initial encounter; Z3A.18 18 weeks gestation of pregnancy; V43.53XA Car driver injured in collision with pick-up truck in traffic accident, initial encounter
CPT/HCPCS: 99282